=== PATIENT | male | born 1990 | race African-American/Black ===

== ENCOUNTER 2019-03-05 07:16 | Emergency (ER) | payer SELFPAY ==
[~2019-03-05] VITALS: Ht 190.5 cm; Wt 122.5 kg
[2019-03-05 08:05] VITALS: BP 136/71
[2019-03-05] MEDS ORDERED: HYDROcodone/APAP 10/325 1 TAB TABLET PO ONE (08:30)
[2019-03-05] MEDS ORDERED: LIDOCAINE 1% Multi-Dose 20 ML VIAL. INJ ONE (08:30)
[2019-03-05] MEDS ORDERED: DIPHTH,PERTUSS(ACELL),TET TOX 0.5 ML DISP.SYRIN. VAX IM ONE (08:45)
--- NOTE | 2019-03-05 08:45 | PHYS DOC ---
Past Medical History Past Medical History: No Pertinent History (GEORGINA MCNULTY MD) Past Surgical History: No Surgical History (GEORGINA MCNULTY MD) Alcohol Use: Rarely Drug Use: Marijuana (GEORGINA MCNULTY MD) Adult General Chief Complaint Chief Complaint: ABSCESS HPI HPI Patient is a 28 year old male who presents with complaining of abscess. Patient states has had painful area in sacral for 1 week that gradually getting worse and more painful. Patient complaining of subjective chills and generalized weakness. Patient denies history of the same problem and history of MRSA. Last tetanus shot was unknown. (GEORGINA MCNULTY MD) Review of Systems Review of Systems Constitutional: Denies fever or chills [] Eyes: Denies change in visual acuity, redness, or eye pain [] HENT: Denies nasal congestion or sore throat [] Respiratory: Denies cough or shortness of breath [] Cardiovascular: No additional information not addressed in HPI [] GI: Denies abdominal pain, nausea, vomiting, bloody stools or diarrhea [] : Denies dysuria or hematuria [] Musculoskeletal: Denies back pain or joint pain [] Integument: Denies rash, reports skin lesions [] Neurologic: Denies headache, focal weakness or sensory changes [] Endocrine: Denies polyuria or polydipsia [] All other systems were reviewed and found to be within normal limits, except as documented in this note. (GEORGINA MCNULTY MD) Current Medications Current Medications Current Medications Medications (Trade) Dose Ordered Sig/Laurel Start Time Stop Time Status Last Admin Dose Admin Acetaminophen/ Hydrocodone Bitart (Lortab 10/325) 1 tab 1X ONCE 03/05/19 08:30 03/05/19 08:31 DC 03/05/19 08:25 1 TAB Diphtheria/ Tetanus/Acell Pertussis (Boostrix) 0.5 ml ONCE ONCE 03/05/19 08:45 03/05/19 08:46 UNV Lidocaine HCl (Lidocaine 1% 20ml Vial) 20 ml 1X ONCE 03/05/19 08:30 03/05/19 08:31 DC 03/05/19 08:26 20 ML (PABLO FREED APRN) Allergies Allergies Allergies Coded Allergies Type Severity Reaction Last Updated Verified No Known Drug Allergies 03/05/19 No (PABLO FREED APRN) Physical Exam Physical Exam Constitutional: Well developed, well nourished, moderate distress, non-toxic appearance. [] HENT: Normocephalic, atraumatic, bilateral external ears normal, oropharynx moist, no oral exudates, nose normal. [] Eyes: PERRLA, EOMI, conjunctiva normal, no discharge. [] Neck: Normal range of motion, no tenderness, supple, no stridor. [] Cardiovascular:Heart rate regular rhythm, no murmur [] Lungs & Thorax: Bilateral breath sounds clear to auscultation [] Skin: Warm, dry, large pilonidal abscess in sacral area without drainage of pus Back: No tenderness, no CVA tenderness. [] Extremities: No tenderness, no cyanosis, no clubbing, ROM intact, no edema. [] Neurologic: Alert and oriented X 3, normal motor function, normal sensory function, no focal deficits noted. [] Psychologic: Affect normal, judgement normal, mood normal. [] (GEORGINA MCNULTY MD) Current Patient Data Vital Signs Vital Signs Date Time Temp Pulse Resp B/P (MAP) Pulse Ox O2 Delivery O2 Flow Rate FiO2 03/05/19 08:05 98.0 75 18 136/71 (92) 99 Room Air 98.0 (PABLO FREED APRN) EKG EKG [] (GEORGINA MCNULTY MD) Radiology/Procedures Radiology/Procedures [] (GEORGINA MCNULTY MD) Radiology/Procedures Indication: abscess Procedure: The procedure was performed by Pablo Freed APRN. The patient was positioned appropriately. Local anesthesia was 10 mL of lidocaine. An incision was then made over the apex of the lesion and exudate and blood was expressed. The drainage cavity was irrigated and packed with sterile gauze. The patients tetanus status updated as needed. The patient tolerated the procedure well. Complications: none (PABLO FREED APRN) Course & Med Decision Making Course & Med Decision Making Evaluation of patient in ER showed 28 year she presented with a pilonidal abscess that was drained and packing was placed and patient felt better. Patient was advised to return to ER in 48 hours for the removing the packing and reevaluation of the wound. (GEORGINA MCNULTY MD) Dragon Disclaimer Dragon Disclaimer This electronic medical record was generated, in whole or in part, using a voice recognition dictation system. (GEORGINA MCNULTY MD) Departure Departure Impression: Primary Impression: Pilonidal cyst with abscess Disposition: HOME, SELF-CARE (at [id number] [phone]) Condition: IMPROVED Referrals: NO PCP (PCP) REBEL BANGURA MD Patient Instructions: Abscess, Care After, Pilonidal Cyst Additional Instructions: Return to emergency room in 48 hours for the moving the packing and recheck informed Follow-up with on-call surgeon for definitive treatment of pilonidal cyst Drink plenty of liquids Follow-up with your primary care physician in 3-5 days Return to ER if not getting better Scripts Hydrocodone/Apap 5-325 (NORCO 5-325 TABLET) 1 Each Tablet 1 TAB PO PRN Q6HRS PRN for PAIN, #10 TAB 0 Refills Prov: GEORGINA MCNULTY MD 03/05/19 Cephalexin (KEFLEX) 500 Mg Capsule 2 CAP PO Q12HR, #40 CAP Prov: GEORGINA MCNULTY MD 03/05/19 Ibuprofen (IBUPROFEN) 800 Mg Tablet 800 MG PO PRN Q8HRS PRN for INFLAMMATION, #20 TAB Prov: GEORGINA MCNULTY MD 03/05/19 Sulfamethoxazole/Trimethoprim (BACTRIM DS TABLET) 1 Each Tablet 1 TAB PO BID for infection, #14 TAB Prov: GEORGINA MCNULTY MD 03/05/19 GEORGINA MCNULTY MD Mar 05, 2019 08:45 PABLO FREED APRN Mar 05, 2019 08:47
[2019-03-05] MEDS ORDERED: IBUP-1060 PO (09:31)
[2019-03-05] MEDS ORDERED: CEPH-264 PO (09:31)
[2019-03-05] MEDS ORDERED: SULF1TAB24 PO (09:31)
[2019-03-05] MEDS ORDERED: HYDR-3164 PO (09:31)
== END 2019-03-05 09:56 | disposition home or self-care (01) ==
LOC: ER 07:16
DX: L05.01 Pilonidal cyst with abscess (principal)
CPT/HCPCS: 10060; 10080; 90471; 90715; 99283; 99284

== ENCOUNTER 2021-04-19 16:47 | Emergency (ER) | payer OTHER ==
[~2021-04-19] VITALS: Ht 190.5 cm; Wt 127.2 kg
[~2021-04-19 16:47] MED LIST: CEPH-264 PO; HYDR-3164 PO; IBUP-1060 PO; SULF1TAB24 PO
[2021-04-19 17:00] VITALS: BP 158/81
--- NOTE | 2021-04-19 17:23 | PHYS DOC ---
Past Medical History Past Medical History: No Pertinent History Past Surgical History: No Surgical History Smoking Status: Current Every Day Smoker Alcohol Use: Rarely Drug Use: Marijuana General Adult EDM: Chief Complaint: WOUND CHECK HPI: HPI: Patient is a 30 year old presented to the ER today for evaluation of a bleeding wound on the back of his right leg. Patient said he was applying lotion on his legs, was rubbing it with his finger and then somehow noted bleeding. He suspected that he cut his skin or blood vessel with his fingernails. He is not on blood thinner. He has history of HTN, on medication for it. It just happened about 20 minutes ago prior to arrival. Review of Systems: Review of Systems: Constitutional: Denies fever or chills. [] Eyes: Denies change in visual acuity. [] HENT: Denies nasal congestion or sore throat. [] Respiratory: Denies cough or shortness of breath. [] Cardiovascular: Denies chest pain or edema. [] GI: Denies abdominal pain, nausea, vomiting, bloody stools or diarrhea. [] : Denies dysuria. [] Musculoskeletal: Denies back pain or joint pain. [] Integument: Denies rash. Positive for bleeding wound on back of right leg. Neurologic: Denies headache, focal weakness or sensory changes. [] Endocrine: Denies polyuria or polydipsia. [] Lymphatic: Denies swollen glands. [] Psychiatric: Denies depression or anxiety. [] Heart Score: C/O Chest Pain: N/A Risk Factors: Risk Factors: DM, Current or recent (<one month) smoker, HTN, HLP, family history of CAD, obesity. Risk Scores: Score 0 - 3: 2.5% MACE over next 6 weeks - Discharge Home Score 4 - 6: 20.3% MACE over next 6 weeks - Admit for Clinical Observation Score 7 - 10: 72.7% MACE over next 6 weeks - Early Invasive Strategies Current Medications: Current Medications Medications (Trade) Dose Ordered Sig/Laurel Start Time Stop Time Status Last Admin Dose Admin Lidocaine/ Epinephrine (LIDOCAINE 1%-EPI 1:100,000 Multi-Dose) 20 ml 1X ONCE 04/19/21 17:30 04/19/21 17:31 Allergies: Allergies: Allergies Coded Allergies Type Severity Reaction Last Updated Verified No Known Drug Allergies 03/05/19 No Physical Exam: PE: Constitutional: Well developed, well nourished, no acute distress, non-toxic appearance. [] HENT: Normocephalic, atraumatic, bilateral external ears normal, oropharynx moist, no oral exudates, nose normal. [] Eyes: PERRLA, EOMI, conjunctiva normal, no discharge. [] Neck: Normal range of motion, no tenderness, supple, no stridor. [] Cardiovascular:Heart rate regular rhythm, no murmur [] Lungs & Thorax: Bilateral breath sounds clear to auscultation [] Abdomen: Bowel sounds normal, soft, no tenderness, no masses, no pulsatile masses. [] Skin: Warm, dry, no erythema, no rash. There is a small wound on the back of right leg just distal to the knee area, appeared to bleed from a varicose vein. No pulsating bleeding. Back: No tenderness, no CVA tenderness. [] Extremities: No tenderness, no cyanosis, no clubbing, ROM intact, no edema. [] Neurologic: Alert and oriented X 3, normal motor function, normal sensory function, no focal deficits noted. [] Psychologic: Affect normal, judgement normal, mood normal. [] Current Patient Data: Vital Signs: Vital Signs Date Time Temp Pulse Resp B/P (MAP) Pulse Ox O2 Delivery O2 Flow Rate FiO2 04/19/21 17:00 98.6 81 16 158/81 97 Room Air 98.6 EKG: EKG: [] Radiology/Procedures: Radiology/Procedures: [] Course & Med Decision Making: Course & Med Decision Making Pertinent Labs and Imaging studies reviewed. (See chart for details) There is a small bleeding wound from a varicose vein on back of right knee area, pressure was applied, after about 15 minutes, the bleeding stopped. Patient was discharged home in stable condition. Dragon Disclaimer: [employer] Disclaimer: This electronic medical record was generated, in whole or in part, using a voice recognition dictation system. Departure Departure Impression: Primary Impression: Bleeding from varicose vein Disposition: HOME / SELF CARE / HOMELESS Condition: STABLE Referrals: UNKNOWN PCP NAME (PCP) Patient Instructions: Bleeding Varicose Veins Additional Instructions: Thank you for visiting our Emergency Department. We appreciate you trusting us with your care. If any additional problems come up don't hesitate to return to visit us. Please follow up with your primary care provider so they can plan additional care if needed and know about the problem that you had. If symptoms worsen come back to the Emergency Department. Any concerning symptoms that start such as chest pain, shortness of air, weakness or numbness on one side of the body, running high fevers or any other concerning symptoms return to the ER. COLETTE MIJARES DO Apr 19, 2021 17:23
[2021-04-19] MEDS ORDERED: LIDOCAINE 1%/EPI 1:100,000 20 ML VIAL. INJ ONE (17:30)
== END 2021-04-19 17:34 | disposition home or self-care (01) ==
LOC: ER 16:47
DX: I83.892 Varicose veins of left lower extremity with other complications (principal); F17.200 Nicotine dependence, unspecified, uncomplicated
CPT/HCPCS: 99281